=== PATIENT | female | born 1985 | race Caucasian/White ===

== ENCOUNTER 2018-02-04 11:49 | Emergency (ER) | payer OTHER ==
[~2018-02-04] VITALS: Ht 172.7 cm; Wt 68.3 kg
[~2018-02-04 11:49] MED LIST: ASCO500T16 PO; BENZ100C84 PO; FERR325T74 PO
[2018-02-04 11:52] VITALS: TEMP 36.8; Ht 172.7 cm; Wt 68.3 kg
[2018-02-04] MEDS ORDERED: ACETAMINOPHEN 500 MG TAB PO STA (12:23)
[2018-02-04] MEDS ORDERED: IBUPROFEN 800 MG TAB PO STA (12:23)
[2018-02-04] MEDS ORDERED: LIDODERM (LIDOCAINE) PATCH 5% TD STA (12:23)
--- NOTE | 2018-02-04 12:23 | EMERGENCY ROOM VISIT NOTE ---
History Report prepared by Antonio: Santosh Cat Under the Supervision of: Dr. Maximus Kaufman M.D. First contact with patient: 12:12 Chief Complaint: BACK PAIN Stated Complaint: BACK TROUBLE History of Present Illness The patient is a 32 year old female who presents to the Emergency Room with complaints of worsening back pain for the past month. The patient states that she usually sees a chiropractor every three weeks, and they told her that she had a herniated disc. She has been icing it, heating it, using ibuprofen, and using an electrical stimulator, though she states that nothing is helping with the pain. She states that she has been decreasing her activity recently, and she has not been sitting as much, though she has been having shooting pain into her sides. 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 She denies any loss of bowels, urinary retention, weakness in her legs, neck pain, abdominal pain, nausea, vomiting, pain with urination, hematuria, and any recent traumas. She notes that her abdomen has felt tight recently. The patient states that she is not taking any pain medications other than 400mg ibuprofen every 4-6 hours. She denies any history of stomach ulcers. Source of History: patient Onset: a month ago Position: back Timing: worsening Modifying Factors (Relieving): other (nothing) Associated Symptoms: No neck pain, No nausea, No vomiting, No abdominal pain , No weakness Review of Systems See HPI for pertinent positives and negatives. A total of ten systems were reviewed and were otherwise negative. Past Medical & Surgical Medical Problems: (1) History of - section Social History Smoking Status: Former Smoker Marital Status: Housing Status: lives with family Current/Historical Medications Scheduled PRN Ibuprofen Tab (Motrin), 800 MG PO Q8H PRN for Pain Lidocaine (Lidocaine), 1 PATCH TD DAILY PRN for Pain Allergies Coded Allergies: No Known Allergies (Verified , 02/04/18) Physical Exam Vital Signs Date Time Temp Pulse Resp B/P (MAP) Pulse Ox O2 Delivery O2 Flow Rate FiO2 02/04/18 12:48 78 17 134/78 100 02/04/18 11:52 36.8 82 18 153/83 100 Room Air Physical Exam GENERAL: Awake, alert, well-appearing, in no distress HENT: Normocephalic, atraumatic. Oropharynx unremarkable. EYES: Normal conjunctiva. Sclera non-icteric. NECK: Supple. No nuchal rigidity. FROM. No JVD. RESPIRATORY: Clear to auscultation. CARDIAC: Regular rate, normal rhythm. Extremities warm and well perfused. Pulses equal. ABDOMEN: Soft, non-distended. No tenderness to palpation. No rebound or guarding. No masses. RECTAL: Deferred. MUSCULOSKELETAL: Mild discomfort of thoracic paraspinal region bilaterally with palpable muscle spasm. No midline tenderness or step off. Chest examination reveals no tenderness. There is no CVA tenderness to palpation. No joint edema. LOWER EXTREMITIES: Calves are equal size bilaterally and non-tender. No edema. No discoloration. NEURO: 5/5 strength, SILT in the lower extremities. Normal sensorium. No sensory or motor deficits noted. SKIN: No rash or jaundice noted. Medical Decision & Procedures Medications Administered Medications (Trade) Dose Ordered Sig/Ana Route Start Time Stop Time Status Last Admin Dose Admin Ibuprofen (Motrin Tab) 800 mg NOW STAT PO 02/04/18 12:23 02/04/18 12:25 DC 02/04/18 12:33 800 MG Acetaminophen (Tylenol Tab) 1,000 mg NOW STAT PO 02/04/18 12:23 02/04/18 12:25 DC 02/04/18 12:32 1,000 MG Lidocaine (Lidoderm Patch 5%) 1 patch NOW STAT TD 02/04/18 12:23 02/04/18 12:25 DC 02/04/18 12:41 1 PATCH ED Course 1212: The patient was evaluated in room C7. A complete history and physical exam was performed. 1232: I reevaluated the patient. Discussed results and discharge instructions: she verbalized understanding and agreement. The patient is ready for discharge. Medical Decision I reviewed the patient's past medical history, medications, and the nursing notes as described above. Differential diagnosis: Etiologies such as musculoskeletal, disc herniation, fracture, aortic disease, metastatic disease, cord compression, discitis, infection, renal colic, gastrointestinal, acute exacerbation of chronic back pain, sciatica, cauda equina, as well as others were entertained. The patient is a 32 y/o woman who presents to the emergency department with upper back pain per HPI. On arrival the patient is in NAD, AFVSS. Denies any concerning sx such as urinary retention, bowel incontinence, extremity weakness or numbness. Neuro intact including 5/5 strength and SILT x 4 ext. Palpable b/l thoracic paraspinal muscle spasm. The patient is concerned that she never had an xray for her back pain and that her chiropractor said she had a herniated disc. I had a discussion at length with patient that given the patient is otherwise healthy without any trauma, imaging and in particular xray, would be unlikely to add any benefit to her management given that treatment is supportive. Patient did not take any Ibuprofen today and has not attempted full dose. Will treat with APAP, IB, and Lidoderm patch. Plan for pcp f/u. Findings and plan for follow-up reviewed with patient. Patient agreeable and d/c'd per discharge instructions. Medication Reconcilliation Current Medication List: was personally reviewed by me Blood Pressure Screening Patient's blood pressure: Elevated blood pressure Blood pressure disposition: Elevated BP felt to be situational Impression Primary Impression: Spasm of thoracic back muscle Scribe Attestation The scribe's documentation has been prepared under my direction and personally reviewed by me in its entirety. I confirm that the note above accurately reflects all work, treatment, procedures, and medical decision making performed by me. Departure Information Dispostion Home / Self-Care Prescriptions Lidocaine (Lidocaine) 1 Patch Tdsy 1 PATCH TD DAILY Y for Pain, #10 PATCH Prov: Maximus Kaufman M.D. 02/04/18 Ibuprofen Tab (MOTRIN) 800 Mg Tab 800 MG PO Q8H Y for Pain for 14 Days, #42 TAB Prov: Maximus Kaufman M.D. 02/04/18 Referrals Andres Romero M.D. (PCP) Forms HOME CARE DOCUMENTATION FORM, IMPORTANT VISIT INFORMATION Patient Instructions ED Neck Back Pain General, ED Spasm Muscle, My [facility] Additional Instructions Please follow up with and establish care with a primary care physician in the next week for re-evaluation and possible physical therapy referral if your symptoms do not improve with today's recommendation. Your symptoms are most likely due to a muscle strain/spasm. A disc bulge or herniation is possible however this is a clinical diagnosis which does not require emergent imaging. Moreover the majority of nontraumatic back pain does resolve on its own. Otherwise, your exam did not show signs of an emergent condition at this time. Acetaminophen or ibuprofen for pain as needed. Lidoderm patch for additional pain relief as needed. Drink plenty of fluids to ensure hydration. Return to the emergency department for worsening symptoms as described in the accompanying instructions.
[2018-02-04] MEDS ORDERED: IBUP-1451 PO (12:28)
[2018-02-04] MEDS ORDERED: LDDP5 TD (12:28)
[2018-02-04 12:48] VITALS: BP 134/78; PULSE 78; O2SAT 100
== END 2018-02-04 12:49 | disposition home or self-care (01) ==
LOC: C.EDB 11:50 → C.EDC 12:49
DX: M62.830 Muscle spasm of back (principal); M51.24 Other intervertebral disc displacement, thoracic region; R03.0 Elevated blood-pressure reading, without diagnosis of hypertension; Z87.891 Personal history of nicotine dependence